=== PATIENT | female | born 1990 | race Caucasian/White ===

== ENCOUNTER 2024-08-05 14:26 | Emergency (ER) | payer OTHER ==
[~2024-08-05] VITALS: Ht 160 cm; Wt 60.0 kg
[2024-08-05 15:12] VITALS: BP 140/100
== END 2024-08-05 15:14 | disposition home or self-care (01) ==
LOC: ED 14:26
DX: Z02.89 Encounter for other administrative examinations (principal); I10 Essential (primary) hypertension; R45.1 Restlessness and agitation; Z88.0 Allergy status to penicillin
CPT/HCPCS: 99283